=== PATIENT | female | born 1940 | race Caucasian/White ===

== ENCOUNTER 2018-06-21 12:39 | Emergency (ER) | payer MEDICARE, OTHER ==
[~2018-06-21] VITALS: Ht 170.2 cm; Wt 75.9 kg
[2018-06-21] MEDS ORDERED: OMNI-PAC300 MG PO (13:00)
[2018-06-21] MEDS ORDERED: ZYRTEC10 MG PO (13:04)
[2018-06-21] MEDS ORDERED: ADULT ASPIRIN R81 MG PO (13:04)
[2018-06-21] MEDS ORDERED: HYDROXYUREA500 MG PO (13:05)
[2018-06-21] MEDS ORDERED: VITAMIN D PO (13:05)
[2018-06-21] MEDS ORDERED: NEURONTIN100 MG PO (13:05)
[2018-06-21] MEDS ORDERED: BETIMOL0.5 % OU (13:06)
[2018-06-21 13:40] VITALS: BP 155/74
== END 2018-06-21 13:40 | disposition home or self-care (01) ==
LOC: ED 12:39
DX: L03.115 Cellulitis of right lower limb (principal); F17.210 Nicotine dependence, cigarettes, uncomplicated

== ENCOUNTER 2020-07-23 07:41 | Emergency (ER) | payer MEDICARE, OTHER ==
[~2020-07-23] VITALS: Ht 170.2 cm; Wt 80.0 kg
[~2020-07-23 07:41] MED LIST: ADULT ASPIRIN R81 MG PO; BETIMOL0.5 % OU; HYDROXYUREA500 MG PO; NEURONTIN100 MG PO; OMNI-PAC300 MG PO; VITAMIN D PO; ZYRTEC10 MG PO
[2020-07-23 08:45] LABS: HEMATOCRIT 39.2 % (37.0-47.0); IMMATURE GRANULOCYTES 1.1 % (0.0-5.0); MEAN CELL VOLUME 110.1 fL CALC (80.0-100.0); MEAN CORPUSCULAR HGB 36.5 pG CALC (26.0-32.0); MEAN CORPUSCULAR HGB CONC 33.2 g/dL CAL (32.0-36.0); NEUT# 6.59 thou/uL (2.00-7.15); RED BLOOD COUNT 3.56 mill/uL (4.20-5.60); RED CELL DISTRI WIDTH 13.2 % (11.5-15.5)
[2020-07-23 09:03] LABS: ALBUMIN 3.9 g/dL (3.2-5.0); ALKALINE PHOSPHATASE 60 u/l (38-126); ANION GAP 10 (6-22 (CALC)); BILIRUBIN, TOTAL 0.3 mg/dL (0.0-1.4); BUN 17 mg/dL (8-23); BUN/CREATININE RATIO 25 (12-20 (CALC)); CARBON DIOXIDE 30 mmol/l (22-30); CHLORIDE 99 mmol/l (95-108); CREATININE 0.7 mg/dL (0.5-1.0); GFR > 60 ML/MIN (>=60 (CALC)); GFR FOR AFR.AMER. > 60 ML/MIN (>=60 (CALC)); POTASSIUM 4.4 mmol/l (3.5-5.1); SGOT/AST 18 u/l (9-36); SODIUM 134 mmol/l (137-146); TOTAL PROTEIN 6.6 g/dL (6.3-8.2)
[2020-07-23] MEDS ORDERED: NAPROXEN500 MG PO (09:28)
[2020-07-23 09:33] VITALS: BP 121/60
== END 2020-07-23 09:42 | disposition home or self-care (01) ==
LOC: ED 07:41
PROVIDERS: Emergency Medicine
DX: M79.89 Other specified soft tissue disorders (principal); D45 Polycythemia vera; F17.200 Nicotine dependence, unspecified, uncomplicated

== ENCOUNTER 2021-02-23 11:31 | Inpatient (IN) | payer MEDICARE, OTHER ==
[~2021-02-23] VITALS: Ht 170.2 cm; Wt 78.0 kg
[~2021-02-23 11:31] MED LIST changes: +NAPROXEN500 MG PO
--- NOTE | 2021-02-23 11:31 | NUR ---
PT TO ROOM VIA WC
[2021-02-23 12:08] LABS: HEMOGLOBIN 13.6 g/dl (12.0-16.0); IMMATURE GRANULOCYTES 1.2 % (0.0-5.0); MEAN CELL VOLUME 105.7 fL CALC (80.0-100.0); MEAN CORPUSCULAR HGB 36.9 pG CALC (26.0-32.0); MEAN CORPUSCULAR HGB CONC 34.9 g/dL CAL (32.0-36.0); NEUT# 19.42 thou/uL (2.00-7.15); RED BLOOD COUNT 3.69 mill/uL (4.20-5.60); RED CELL DISTRI WIDTH 12.6 % (11.5-15.5)
[2021-02-23 12:19] LABS: ALBUMIN 3.7 g/dL (3.2-5.0); BILIRUBIN, TOTAL 0.6 mg/dL (0.0-1.4); BUN 16 mg/dL (8-23); BUN/CREATININE RATIO 28 (12-20 (CALC)); CARBON DIOXIDE 30 mmol/l (22-30); CREATININE 0.6 mg/dL (0.5-1.0); GFR > 60 ML/MIN (>=60 (CALC)); GFR FOR AFR.AMER. > 60 ML/MIN (>=60 (CALC)); POTASSIUM 4.1 mmol/l (3.5-5.1); TOTAL PROTEIN 7.1 g/dL (6.3-8.2)
[2021-02-23 12:20] LABS: ALKALINE PHOSPHATASE 124 u/l (38-126); ANION GAP 10 (6-22 (CALC)); CHLORIDE 87 mmol/l (95-108); SGOT/AST 33 u/l (9-36); SODIUM 123 mmol/l (137-146)
--- NOTE | 2021-02-23 12:35 | NUR ---
Reassessment of patient completed. No distress noted.
--- NOTE | 2021-02-23 14:59 | NUR ---
Reassessment of patient completed. No distress noted.
[2021-02-23] MEDS ORDERED: LUNESTA1 M1 PO (15:35)
--- NOTE | 2021-02-23 16:45 | NUR ---
CALL TO MED/SURG FOR REPORT
--- NOTE | 2021-02-23 16:50 | NUR ---
REPORT CALLED TO [facility]
--- NOTE | 2021-02-23 16:59 | NUR ---
REPORT GIVEN TO FLOOR
--- NOTE | 2021-02-23 17:13 | NUR ---
PT ARRIVED VIA STRECTHER ACCOMPANIED BY DHRUV BROWN. PT A&O X3. O2 VIA NC @[address] COARSE BREATH SOUNDS UPON AUSCULTATION. HYPOACTIVE BOWEL SOUNDS X4 QUADRANTS; PT REPORTS LAST BM 02/21. BUSINESS INSTRUCTOR COUGH NOTED; PT REPORTS OCCASSIONAL PRODUCTION. ADMITS TO SMOKING 1/2 PPD. EXERTIONAL SOB NOTED. #20G LAC HEALTHY AND PATENT. SLAT BASKET MAKER HELPER MACHINE IN PLACE. ASSESSMENT COMPLETED. DISCUSSED POC. ORIENTED PT TO ROOM. CALL LIGHT WITHIN REACH.
--- NOTE | 2021-02-23 17:14 | NUR ---
PATIENT TRANSPORTED TO [facility]
[2021-02-23 19:00] VITALS: BP 145/82
--- NOTE | 2021-02-23 19:45 | NUR ---
PATIENT ALERT AND ORIENTED. ABLE TO MAKE NEEDS KNOWN. ASSESSMENT COMPLETE. NO SIGNS OF DISTRESS NOTED. NO COMPLAINTS OF PAIN VOICED. PATIENT STATED, '' I HAVENT COUGHED MUCH''. CALL LIGHT AND BELONGINGS REMAIN IN REACH.
--- NOTE | 2021-02-23 23:09 | NUR ---
OBSERVED PATIENT COUGHING MULTIPLE TIMES. ASKED PATIENT IF SHE WOULD LIKE A BREATHING TREATMENT. RESPIRATORY THERAPY CALLED TO GIVE PATIENT BREATHING TREATMENT. NO SIGNS OF DISTRESS. NO COMPLAINTS OF PAIN. PATIENT HAVING HARD TIME SLEEPING BECAUSE HER COUGHING WAKES HER UP. CALL LIGHT AND BELONGINGS REMAIN IN REACH.
[2021-02-24] VITALS: BP 138/73
--- NOTE | 2021-02-24 02:15 | NUR ---
OBSERVED PATIENT WALKING DOWN THE HALLWAY. CELL CHANGER WALKED PATIENT BACK TO ROOM. PATIENT STATED SHE NEEDED TO USE THE BATHROOM. CELL CHANGER ASSISTED PATIENT TO BEDSIDE COMMODE. AFTER PATIENT WAS ASSISTED BACK TO BED, STAFF REMINDED HER TO UTILIZE HER CALL LIGHT FOR HELP BEFORE GETTING UP FOR SAFETY PURPOSES. BED ALARM WAS ACTIVATED FOR SAFETY PURPOSES. CALL LIGHT AND BELONGINGS REMAIN IN REACH.
[2021-02-24 04:00] VITALS: BP 146/78
--- NOTE | 2021-02-24 04:15 | NUR ---
PATIENT RESTING IN BED. NO DISTRESS NOTED. NO COMPLAINTS OF PAIN AT THIS TIME. NO COUGHING OBSERVED SINCE BREATHING TREATMENT WAS GIVEN BY RT. NO FURTHER ATTEMPTS OF GETTING OUT OF PAIN BY SELF AT THIS TIME. CALL LIGHT AND BELONGINGS REMAIN IN REACH.
[2021-02-24 05:49] LABS: HEMATOCRIT 35.8 % (37.0-47.0); HEMOGLOBIN 12.1 g/dl (12.0-16.0); MEAN CELL VOLUME 107.8 fL CALC (80.0-100.0); MEAN CORPUSCULAR HGB 36.4 pG CALC (26.0-32.0); MEAN CORPUSCULAR HGB CONC 33.8 g/dL CAL (32.0-36.0); RED BLOOD COUNT 3.32 mill/uL (4.20-5.60)
[2021-02-24 06:05] LABS: ANION GAP 7 (6-22 (CALC)); BUN 15 mg/dL (8-23); BUN/CREATININE RATIO 26 (12-20 (CALC)); CARBON DIOXIDE 28 mmol/l (22-30); CHLORIDE 95 mmol/l (95-108); CREATININE 0.6 mg/dL (0.5-1.0); GFR > 60 ML/MIN (>=60 (CALC)); GFR FOR AFR.AMER. > 60 ML/MIN (>=60 (CALC)); MAGNESIUM 1.8 mg/dL (1.6-2.3); POTASSIUM 4.4 mmol/l (3.5-5.1); SODIUM 125 mmol/l (137-146)
--- NOTE | 2021-02-24 07:30 | NUR ---
RECIEVED REPORT FROM KEVIN GARCIA
[2021-02-24 08:15] VITALS: BP 168/80
--- NOTE | 2021-02-24 08:15 | NUR ---
PT RESTING IN SEMI FOWLERS POSITION. PT IS A/OX3 WITH PERIODS OF CONFUSION. ASSESSMENT AND VITALS COMPLETED. BP 168/80, HR 79,O2 97% ON 2L NC. RESPIRATIONS ARE SHALLOW. LUNG SOUNDS ARE COURSE. PT RREQUESTING NEB TREATMENT, RT INFORMED. BOWEL SOUNDS ARE ACTIVE, PT REPORTS BM 02/24/20. HEART RHYTHM NORMAL WITH TELE IN PLACE, SR WITH PAC PER ER MONITORING.#20G LAC FLUSHED, SITE APEARS HEALTHY AND PATENT. SKIN INTACT. PT DENIES OF ANY OF ANY PAINS OR DISCOMFORTS AT THIS TIME. ALL SAFTEY PRECAUTIONS ARE IN PLACE WITH CALL LIGHT IN REACH.BED ALARM ACTIVE. WILL CONTINUE TO MONITOR.
--- NOTE | 2021-02-24 10:25 | NUR ---
DR SALOMON AND ART,ANLUX AT BEDSIDE
[2021-02-24 12:12] VITALS: BP 147/84
--- NOTE | 2021-02-24 12:24 | NUR ---
PT UP WALKING AROUND ROOM WITH STEADY GAIT. PT STATES SHES ONLY WALKING AROUND SINCE DAUGHTER IN AT BEDSIDE. REPORTS FROM MANAGER [employer] OF UNSTEADY GAIT. PT RE-EDUCATED ON CALLING FOR ASSISTANCE. PT VERBLAIZED UNDERSTANDING. RESPIRATIONS REMAINS EVEN AND UNLABORED ON 2L NC. #20G LAC INFUSING WITH IVF PER ORDER. TELE MONITORING IN PLACE. PT DENIES OF ANY ADDITIONAL NEEDS AT THIS TIME. ALL SAFTEY PRECAUTIONS ARE IN PLACE WITH CALL LIGHT IN REACH. WILL CONTINUE TO MONITOR
--- NOTE | 2021-02-24 15:39 | NUR ---
PT REMAIS SLEEPING IN SEMI FOWLERS POSITION. RESPIRATIONS REMAINS EVEN AND UNLABORED ON 2L NC. #20G LAC INFUSING WITH IVF PER ORDER, SITE REMAINS HEALTHY AND PATENT. TELE MONITORIG I PLACE. NO SIGN OF PAIN OR DISCOMFORTS. ALL SAFTEY PRECAUTIONS ARE IN PLACE WITH CALL LIGHT IN REACH. WILL CONTINUE TO MONITOR
[2021-02-24 16:42] VITALS: BP 135/74
[2021-02-24 19:30] VITALS: BP 158/77
[2021-02-25 00:09] VITALS: BP 167/78
[2021-02-25 04:40] VITALS: BP 184/79
[2021-02-25 05:12] VITALS: BP 137/60
[2021-02-25 07:25] VITALS: BP 137/64
--- NOTE | 2021-02-25 07:39 | NUR ---
PT note The patient is screened for PT intervention and no needs are identified at this time
--- NOTE | 2021-02-25 08:46 | NUR ---
PT ALERT AND ORIENTED X 3. LUNGS SLIGHTLY COARSE, LOUD COUGH HEARD, 3 LPM NC. PT STATES NO BM FOR SEVERAL DAYS, NOT TOO UNUSUAL FOR HER. PT OOB IN CHAIR AT BEDSIDE FOR BREAKFAST.
[2021-02-25 11:45] VITALS: BP 120/65
--- NOTE | 2021-02-25 12:10 | NUR ---
PT TAKEN FOR 6 MINUTE WALK TEST. STARTED 95% RA, WENT DOWN TO 93% DURING WALK, RECOVERED TO 95% AT REST AGAIN.
[2021-02-25] MEDS ORDERED: PREDNISONE20 MG PO (13:10)
[2021-02-25] MEDS ORDERED: MUCINEX600 MG PO (13:11)
[2021-02-25] MEDS ORDERED: VENTOLIN HFA108 MCG IN (13:12)
[2021-02-25] MEDS ORDERED: OMNICEF300 MG PO (13:13)
[2021-02-25] MEDS ORDERED: ZITHROMAX250 MG PO (13:15)
--- NOTE | 2021-02-25 14:35 | NUR ---
PT VERBALIZES UNDERSTANDING OF DC INSTRUCTIONS, CALLS DAUGHTER FOR PICKUP. PT CONCERNED ABOUT OCCASIONAL EPISODES OF SHORTNESS OF BREATH, ENCOURAGED BY DR SALOMON TO REFRAIN FROM SMOKING.
[2021-02-25 14:41] LABS: HEMATOCRIT 36.8 % (37.0-47.0); HEMOGLOBIN 12.2 g/dl (12.0-16.0); IMMATURE GRANULOCYTES 5.2 % (0.0-5.0); MEAN CELL VOLUME 110.5 fL CALC (80.0-100.0); MEAN CORPUSCULAR HGB 36.6 pG CALC (26.0-32.0); MEAN CORPUSCULAR HGB CONC 33.2 g/dL CAL (32.0-36.0); NEUT# 14.8 thou/uL (2.00-7.15); RED BLOOD COUNT 3.33 mill/uL (4.20-5.60)
[2021-02-25 15:01] LABS: ANION GAP 8 (6-22 (CALC)); BUN 22 mg/dL (8-23); BUN/CREATININE RATIO 30 (12-20 (CALC)); CARBON DIOXIDE 30 mmol/l (22-30); CHLORIDE 100 mmol/l (95-108); CREATININE 0.7 mg/dL (0.5-1.0); GFR > 60 ML/MIN (>=60 (CALC)); GFR FOR AFR.AMER. > 60 ML/MIN (>=60 (CALC)); POTASSIUM 4.9 mmol/l (3.5-5.1)
[2021-02-25 15:06] LABS: SODIUM 133 mmol/l (137-146)
== END 2021-02-25 14:30 | disposition home health service (06) | DRG 193 ==
LOC: ED 11:31 → ED-I 15:27 → ED 15:38 → MS2 15:39
PROVIDERS: Family Medicine; Nurse Practitioner; ADMIT Hospitalist; ATTEND Internal Medicine
DX: J18.9 Pneumonia, unspecified organism (principal); J96.01 Acute respiratory failure with hypoxia; E87.1 Hypo-osmolality and hyponatremia; J44.0 Chronic obstructive pulmonary disease with (acute) lower respiratory infection; I10 Essential (primary) hypertension; D45 Polycythemia vera; H35.30 Unspecified macular degeneration; F17.210 Nicotine dependence, cigarettes, uncomplicated; Z20.822 Contact with and (suspected) exposure to COVID-19
CPT/HCPCS: G0378; J1650; Q9967

== ENCOUNTER 2021-03-19 09:32 | Emergency (ER) | payer MEDICARE, OTHER ==
[~2021-03-19] VITALS: Ht 170.2 cm; Wt 72.7 kg
[~2021-03-19 09:32] MED LIST changes: +LUNESTA1 M1 PO; +MUCINEX600 MG PO; +OMNICEF300 MG PO; +PREDNISONE20 MG PO; +VENTOLIN HFA108 MCG IN; +ZITHROMAX250 MG PO
[2021-03-19 10:17] LABS: HEMATOCRIT 38.7 % (37.0-47.0); HEMOGLOBIN 12.7 g/dl (12.0-16.0); IMMATURE GRANULOCYTES 0.7 % (0.0-5.0); MEAN CELL VOLUME 112.8 fL CALC (80.0-100.0); MEAN CORPUSCULAR HGB CONC 32.8 g/dL CAL (32.0-36.0); NEUT# 7.23 thou/uL (2.00-7.15); RED BLOOD COUNT 3.43 mill/uL (4.20-5.60); RED CELL DISTRI WIDTH 15.7 % (11.5-15.5)
[2021-03-19 10:38] LABS: ALBUMIN 4.2 g/dL (3.2-5.0); ALKALINE PHOSPHATASE 72 u/l (38-126); ANION GAP 10 (6-22 (CALC)); BILIRUBIN, TOTAL 0.6 mg/dL (0.0-1.4); BUN 19 mg/dL (8-23); BUN/CREATININE RATIO 24 (12-20 (CALC)); CARBON DIOXIDE 31 mmol/l (22-30); CHLORIDE 93 mmol/l (95-108); CREATININE 0.8 mg/dL (0.5-1.0); GFR > 60 ML/MIN (>=60 (CALC)); GFR FOR AFR.AMER. > 60 ML/MIN (>=60 (CALC)); LIPASE 54 u/l (23-300); POTASSIUM 4.5 mmol/l (3.5-5.1); SGOT/AST 26 u/l (9-36); SODIUM 129 mmol/l (137-146); TOTAL PROTEIN 7.2 g/dL (6.3-8.2)
[2021-03-19 12:53] VITALS: BP 149/66
== END 2021-03-19 12:53 | disposition home or self-care (01) ==
LOC: ED 09:32
DX: K56.41 Fecal impaction (principal); D45 Polycythemia vera; C94.6 Myelodysplastic disease, not elsewhere classified; F17.200 Nicotine dependence, unspecified, uncomplicated; Z79.899 Other long term (current) drug therapy
CPT/HCPCS: Q9967

== ENCOUNTER 2021-06-02 12:36 | Emergency (ER) | payer MEDICARE, OTHER ==
[~2021-06-02] VITALS: Ht 172.7 cm; Wt 71.8 kg
[2021-06-02 13:10] LABS: HEMOGLOBIN 12.8 g/dl (12.0-16.0); IMMATURE GRANULOCYTES 1.1 % (0.0-5.0); MEAN CELL VOLUME 110.1 fL CALC (80.0-100.0); MEAN CORPUSCULAR HGB 37.1 pG CALC (26.0-32.0); MEAN CORPUSCULAR HGB CONC 33.7 g/dL CAL (32.0-36.0); NEUT# 4.59 thou/uL (2.00-7.15); RED BLOOD COUNT 3.45 mill/uL (4.20-5.60); RED CELL DISTRI WIDTH 13.8 % (11.5-15.5)
[2021-06-02 13:32] LABS: ALKALINE PHOSPHATASE 75 u/l (38-126); ANION GAP 12 (6-22 (CALC)); BILIRUBIN, TOTAL 0.5 mg/dL (0.0-1.4); BUN 14 mg/dL (8-23); BUN/CREATININE RATIO 23 (12-20 (CALC)); CARBON DIOXIDE 27 mmol/l (22-30); CHLORIDE 102 mmol/l (95-108); CREATININE 0.6 mg/dL (0.5-1.0); GFR > 60 ML/MIN (>=60 (CALC)); GFR FOR AFR.AMER. > 60 ML/MIN (>=60 (CALC)); POTASSIUM 4.2 mmol/l (3.5-5.1); SGOT/AST 20 u/l (9-36); SODIUM 137 mmol/l (137-146); TOTAL PROTEIN 7.2 g/dL (6.3-8.2)
[2021-06-02] MEDS ORDERED: VISTARIL 50MG C50 M1 PO (14:01)
[2021-06-02 14:05] VITALS: BP 173/74
== END 2021-06-02 14:20 | disposition home or self-care (01) ==
LOC: ED 12:36
PROVIDERS: Family Medicine
DX: R06.02 Shortness of breath (principal); F41.9 Anxiety disorder, unspecified; I10 Essential (primary) hypertension; D45 Polycythemia vera; C94.6 Myelodysplastic disease, not elsewhere classified; F17.200 Nicotine dependence, unspecified, uncomplicated

== ENCOUNTER 2021-06-10 17:22 | Emergency (ER) | payer MEDICARE, OTHER ==
[~2021-06-10] VITALS: Ht 172.7 cm; Wt 69.1 kg
[~2021-06-10 17:22] MED LIST changes: +VISTARIL 50MG C50 M1 PO
[2021-06-10 17:30] VITALS: BP 150/73
[2021-06-10 18:21] VITALS: BP 153/71
[2021-06-10 18:28] LABS: HEMATOCRIT 33.9 % (37.0-47.0); HEMOGLOBIN 11.4 g/dl (12.0-16.0); IMMATURE GRANULOCYTES 1.4 % (0.0-5.0); MEAN CELL VOLUME 108.7 fL CALC (80.0-100.0); MEAN CORPUSCULAR HGB 36.5 pG CALC (26.0-32.0); MEAN CORPUSCULAR HGB CONC 33.6 g/dL CAL (32.0-36.0); NEUT# 3.96 thou/uL (2.00-7.15); RED BLOOD COUNT 3.12 mill/uL (4.20-5.60); RED CELL DISTRI WIDTH 13.2 % (11.5-15.5)
[2021-06-10] MEDS ORDERED: BUPROPION150 M3 PO (18:28)
[2021-06-10 18:30] VITALS: BP 136/58
[2021-06-10 18:45] LABS: ALBUMIN 3.7 g/dL (3.2-5.0); ALKALINE PHOSPHATASE 77 u/l (38-126); ANION GAP 10 (6-22 (CALC)); BILIRUBIN, TOTAL 0.4 mg/dL (0.0-1.4); BUN 16 mg/dL (8-23); BUN/CREATININE RATIO 25 (12-20 (CALC)); CARBON DIOXIDE 28 mmol/l (22-30); CHLORIDE 103 mmol/l (95-108); CREATININE 0.6 mg/dL (0.5-1.0); GFR > 60 ML/MIN (>=60 (CALC)); GFR FOR AFR.AMER. > 60 ML/MIN (>=60 (CALC)); POTASSIUM 3.9 mmol/l (3.5-5.1); SGOT/AST 17 u/l (9-36); SODIUM 136 mmol/l (137-146); TOTAL PROTEIN 6.6 g/dL (6.3-8.2)
[2021-06-10 19:01] VITALS: BP 162/59
[2021-06-10 19:15] VITALS: BP 162/59
[2021-06-13] MEDS ORDERED: PRESERVISION AREDS 2 (11:26)
[2021-06-13] MEDS ORDERED: D3 PO (11:50)
[2021-06-13] MEDS ORDERED: VENTOLIN HFA IN (11:52)
== END 2021-06-10 19:31 | disposition left against medical advice (07) ==
LOC: ED 17:22
PROVIDERS: Family Medicine
DX: R07.9 Chest pain, unspecified (principal); D45 Polycythemia vera; C94.6 Myelodysplastic disease, not elsewhere classified; F17.200 Nicotine dependence, unspecified, uncomplicated; Z91.19 Patient's noncompliance with other medical treatment and regimen; R06.02 Shortness of breath

== ENCOUNTER 2021-06-16 06:50 | Observation (INO) | payer MEDICARE, OTHER ==
[~2021-06-16] VITALS: Ht 172.7 cm; Wt 71.3 kg
[2021-06-16] VITALS (15 sets, daily range): BP systolic 115–143; BP diastolic 48–66
[~2021-06-16 06:50] MED LIST changes: +BUPROPION150 M3 PO; +PRESERVISION AREDS 2 PO; +VENTOLIN HFA IN; +VITAMIN D1.25 MG PO
[2021-06-16 10:58] LABS: HEMATOCRIT 23.7 % (37.0-47.0)
[2021-06-16 11:44] LABS: HEMATOCRIT 23.5 % (37.0-47.0); MEAN CELL VOLUME 107.3 fL CALC (80.0-100.0); MEAN CORPUSCULAR HGB 36.5 pG CALC (26.0-32.0); RED BLOOD COUNT 2.19 mill/uL (4.20-5.60); RED CELL DISTRI WIDTH 13.2 % (11.5-15.5)
[2021-06-16 12:12] LABS: IMMATURE GRANULOCYTES 6.3 % (0.0-5.0); NEUT# 1.28 thou/uL (2.00-7.15)
[2021-06-16 13:10] LABS: HEMATOCRIT 23.8 % (37.0-47.0); HEMOGLOBIN 8.1 g/dl (12.0-16.0); IMMATURE GRANULOCYTES 6.1 % (0.0-5.0); MEAN CELL VOLUME 107.2 fL CALC (80.0-100.0); MEAN CORPUSCULAR HGB 36.5 pG CALC (26.0-32.0); NEUT# 1.31 thou/uL (2.00-7.15); RED BLOOD COUNT 2.22 mill/uL (4.20-5.60); RED CELL DISTRI WIDTH 13.2 % (11.5-15.5)
[2021-06-16 14:14] LABS: HEMOGLOBIN 8.2 g/dl (12.0-16.0); MEAN CELL VOLUME 107.6 fL CALC (80.0-100.0); MEAN CORPUSCULAR HGB 36.8 pG CALC (26.0-32.0); MEAN CORPUSCULAR HGB CONC 34.2 g/dL CAL (32.0-36.0); RED BLOOD COUNT 2.23 mill/uL (4.20-5.60); RED CELL DISTRI WIDTH 13.4 % (11.5-15.5)
[2021-06-16 14:19] LABS: IMMATURE GRANULOCYTES 4.5 % (0.0-5.0); NEUT# 1.55 thou/uL (2.00-7.15)
[2021-06-16 14:51] LABS: ALKALINE PHOSPHATASE 66 u/l (38-126); ANION GAP 8 (6-22 (CALC)); BILIRUBIN, TOTAL 0.5 mg/dL (0.0-1.4); BUN 19 mg/dL (8-23); BUN/CREATININE RATIO 28 (12-20 (CALC)); CARBON DIOXIDE 27 mmol/l (22-30); CHLORIDE 105 mmol/l (95-108); CREATININE 0.7 mg/dL (0.5-1.0); GFR > 60 ML/MIN (>=60 (CALC)); GFR FOR AFR.AMER. > 60 ML/MIN (>=60 (CALC)); POTASSIUM 3.9 mmol/l (3.5-5.1); SGOT/AST 15 u/l (9-36); SODIUM 135 mmol/l (137-146); TOTAL PROTEIN 5.3 g/dL (6.3-8.2)
[2021-06-16 14:52] LABS: ALBUMIN 2.8 g/dL (3.2-5.0)
[2021-06-16 18:41] LABS: HEMATOCRIT 24.7 % (37.0-47.0); HEMOGLOBIN 8.5 g/dl (12.0-16.0)
--- NOTE | 2021-06-16 20:00 | NUR ---
PATIENT ALERT AND ORIENTED. ABLE TO MAKE NEEDS KNOWN. ASSESSMENT COMPLETE. NO SIGNS OF DISTRESS NOTED. NO COMPLAINTS OF PAIN VOICED AT THIS TIME. IV APPEARS TO SET OFF PUMP ALARM OFTEN DUE TO PATIENT BENDING ARM ALOT. FREQUENTLY REMINDING PATIENT TO TRY AND KEEP ARM STRAIGHT IN ORDER FOR THE PUMP NOT TO BEEP. PATIENT REMINDED TO ASK FOR ASSISTANCE BEFORE TRYING TO AMBULATE BY HERSELF FOR SAFETY PURPOSES. PATIENT VERBALIZED UNDERSTANDING. CALL LIGHT AND BELONGINGS REMAIN IN REACH.
[2021-06-16 23:24] LABS: HEMATOCRIT 21.5 % (37.0-47.0); HEMOGLOBIN 7.4 g/dl (12.0-16.0)
--- NOTE | 2021-06-16 23:48 | NUR ---
CALLED AND INFORMED DR. CHURCH PER HIS REQUEST ON PATIENTS MOST RECENT H AND H. NO NEW ORDERS RECEIVED AT THIS TIME. WILL CALL AND INFORM THE PROMOTION WRITER MD FOR MEDICAL MANAGEMENT.
--- NOTE | 2021-06-16 23:50 | NUR ---
CALLED AND INFORMED CANARY RAISER PROVIDER COVERING PATIENTS MEDICAL MANAGEMENT ASPECT OF PATIENTS UPDATED H AND H. NEW ORDERS RECEIVED. SEE EMAR.
[2021-06-17] VITALS (7 sets, daily range): BP systolic 127–167; BP diastolic 43–80
--- NOTE | 2021-06-17 02:00 | NUR ---
EXPLAINED TO PATIENT HEMOGLOBIN WAS LOW AGAIN AND DR ORDERED ANOTHER BLOOD TRANSFUSION. PATIENT UNDERSTOOD THE NEED FOR MORE BLOOD TO BE HUNG AND SIGNED CONSENT. OTHER STAFF NURSE PRESENT WITH ME.
--- NOTE | 2021-06-17 02:35 | NUR ---
CALLED HONING JOB SETTER PROVIDER AND INFORMED HIM OF PATIENTS STATUS. AT 0220 PATIENT PULLED OUT BOTH IVS, APPEARED VERY CONFUSED AND PARANOID ACCORDING TO NURSING DUTY OFFICER WHO WAS PRESENT. PATIENT WAS ACCUSING STAFF OF BEING TERRORISTS AND DID NOT WANT TO BE STUCK WITH A NEEDLE FOR A NEW IV START. PATIENT STATED, ''YOURE USING MY BODY TO PURIFY BLOOD''. NEW ORDER RECEIVED BY PROVIDER. SEE EMAR. PROVIDER ALSO APPROVED TO HOLD IV, BLOOD, AND TELE UNTIL MORNING IF PATIENT WILL SLEEP.
--- NOTE | 2021-06-17 02:40 | NUR ---
PATIENT IN ROOM CALLING RELATIVES INCLUDING DAUGHTER AND WITH KELP OR SEAGRASS GATHERER PRESENT. PATIENT ALSO CALLED 911 TO REPORT TERRORISTS. DISPATCH CALLED TO VERIFY CALL. DEPUTIES IN ROUTE.
--- NOTE | 2021-06-17 02:45 | NUR ---
POLICE OFFICERS X2 ARRIVED WITH HOSPITAL SECURITY TO PATIENT ROOM. PATIENT STILL REMAINS CONFUSED. ''THIS IS NOT [facility]''. ''NAME THE TOOLING INSPECTOR''. PATIENT DID CALM DOWN. PATIENT CELL PHONE CONFISCATED BY POLICE AND PUT AT NURSING STATION SO PATIENT COULD NOT KEEP CALLING 911 TO REPORT TERRORISTS.
--- NOTE | 2021-06-17 02:58 | NUR ---
ARRIVED TO [facility] TO PATIENT ROOM TO BE WITH . NURSING CREDIT RISK MANAGER PRESENT.
--- NOTE | 2021-06-17 03:15 | NUR ---
PT REMAINED AGITATED, REFUSING TO LAY DOWN AND REST. AT BEDSIDE TRYING TO TALK PT DOWN. CONSENTED TO GIVING PT SHOT. ZYPREXIA GIVEN.
--- NOTE | 2021-06-17 03:35 | NUR ---
PATIENT REQUESTED ICE WATER. PROVIDED ICE WATER AND EXTRA PILLOW CASES THAT HE REQUESTED.
--- NOTE | 2021-06-17 04:26 | NUR ---
SPOKE WITH NURSING ASSISTANT MECHANIC. VS AND MORNING LABS DEFERRED DUE TO PATIENTS PRIOR CONFUSION AND AGITATION. WILL INFORM ONCOMING NURSE WHEN SHE ARRIVES. NURSING ASSISTANT MECHANIC REPORTED OBSERVING VERY SCANT AMOUNT OF BLOOD IN TOILET WHEN PATIENT VOIDED.
--- NOTE | 2021-06-17 05:00 | NUR ---
WENT IN ROOM TO CHECK ON PATIENT. PATIENT LAYING ON HER RIGHT SIDE. ALERT. PATIENT APOLOGIZED MORE THEN ONCE ON HER BEHAVIOR FROM EARLIER IN THE SHIFT. PATIENT ALSO VOICED WANTING TO [id number] TO THE OTHER NURSES IF SHE SEES THEM. PATIENT AGREED TO LET LAB DRAW HER BLOOD.
[2021-06-17 05:38] LABS: MEAN CORPUSCULAR HGB 36.1 pG CALC (26.0-32.0); MEAN CORPUSCULAR HGB CONC 34.8 g/dL CAL (32.0-36.0); NEUT# 1.38 thou/uL (2.00-7.15); RED BLOOD COUNT 2.02 mill/uL (4.20-5.60); RED CELL DISTRI WIDTH 14.4 % (11.5-15.5)
[2021-06-17 05:49] LABS: HEMOGLOBIN 7.4 g/dl (12.0-16.0)
[2021-06-17 06:03] LABS: ALBUMIN 2.8 g/dL (3.2-5.0); ALKALINE PHOSPHATASE 65 u/l (38-126); BILIRUBIN, TOTAL 0.6 mg/dL (0.0-1.4); BUN 22 mg/dL (8-23); BUN/CREATININE RATIO 28 (12-20 (CALC)); CARBON DIOXIDE 28 mmol/l (22-30); CHLORIDE 105 mmol/l (95-108); CREATININE 0.8 mg/dL (0.5-1.0); GFR > 60 ML/MIN (>=60 (CALC)); GFR FOR AFR.AMER. > 60 ML/MIN (>=60 (CALC)); MAGNESIUM 1.7 mg/dL (1.6-2.3); POTASSIUM 3.5 mmol/l (3.5-5.1); SGOT/AST 17 u/l (9-36); TOTAL PROTEIN 5.1 g/dL (6.3-8.2)
[2021-06-17 06:05] LABS: ANION GAP 7 (6-22 (CALC)); SODIUM 136 mmol/l (137-146)
--- NOTE | 2021-06-17 07:36 | NUR ---
RECEIVED REPORT FROM PLANS EXAMINER NURSE. PATIENT IS AWAKE AND RESTING IN BED. AOX3. ASSESSEMENT COMPLETED. LS CLEAR BILATERALLY. SINUS RHYTHM HR OF 91WITH TELE IN PLACE. BOWEL SOUNDS ACTIVE. RESPIRATIONS UNLABORED AND EVEN. 20G IV IN RFA WITH BLOOD TRANSFUSING @100ML/HR. CALL LIGHT WITHIN REACH.
--- NOTE | 2021-06-17 10:46 | NUR ---
AM MEDICATIONS HELD UNTIL AFTER BLOOD WAS FINISHED INFUSING PER LOCOMOTIVE ENGINEER ELECTRIC REQUEST
--- NOTE | 2021-06-17 12:03 | NUR ---
PATIENT SITTING UP IN CHAIR WITH IN THE ROOM. C/O FEELING BLOATED. PATIENT ATE 100% OF HER LUNCH. VS STABLE AT THIS TIME. CALL LIGHT WITHIN REACH. PATIENT ADVISED TO CALL IF SHE NEEDS ANYTHING. SHE VERBALIZED UNDERSTANDING
[2021-06-17 12:44] LABS: HEMATOCRIT 24.6 % (37.0-47.0); HEMOGLOBIN 8.6 g/dl (12.0-16.0)
--- NOTE | 2021-06-17 13:52 | NUR ---
PHYSICAL THERAPY AT BEDSIDE. STATES PATIENT IS SAFE TO GO HOME. WILL NOTIFY DR. SALOMON
--- NOTE | 2021-06-17 15:18 | NUR ---
Discharge instructions given. Patient verbalizes understanding of same. Discharged in stable condition via Wheelchair to Home with spouse. All belongings sent with pt.
== END 2021-06-17 15:11 | disposition home or self-care (01) ==
LOC: ENDO 06:50 → ORM 09:30 → MS2 13:37
PROVIDERS: Nurse Practitioner; ADMIT Hospitalist; ATTEND Surgery
PROC: 0DBL8ZX Excision of Transverse Colon, Via Natural or Artificial Opening Endoscopic, Diagnostic (ICD-10-PCS; principal; 2021-06-16)
PROC: 0DBH8ZX Excision of Cecum, Via Natural or Artificial Opening Endoscopic, Diagnostic (ICD-10-PCS; 2021-06-16)
PROC: 30243R1 Transfusion of Nonautologous Platelets into Central Vein, Percutaneous Approach (ICD-10-PCS; 2021-06-16)
PROC: 30243N1 Transfusion of Nonautologous Red Blood Cells into Central Vein, Percutaneous Approach (ICD-10-PCS; 2021-06-16)
PROC: 30233N1 Transfusion of Nonautologous Red Blood Cells into Peripheral Vein, Percutaneous Approach (ICD-10-PCS; 2021-06-17)
DX: K59.00 Constipation, unspecified (principal); D12.0 Benign neoplasm of cecum; D12.3 Benign neoplasm of transverse colon; D78.12 Accidental puncture and laceration of the spleen during other procedure; D62 Acute posthemorrhagic anemia; I95.9 Hypotension, unspecified; D69.6 Thrombocytopenia, unspecified; G62.9 Polyneuropathy, unspecified; D45 Polycythemia vera; F17.210 Nicotine dependence, cigarettes, uncomplicated; K64.8 Other hemorrhoids; H35.30 Unspecified macular degeneration; C94.6 Myelodysplastic disease, not elsewhere classified; F41.9 Anxiety disorder, unspecified; Y83.8 Other surgical procedures as the cause of abnormal reaction of the patient, or of later complication, without mention of misadventure at the time of the procedure; Z92.21 Personal history of antineoplastic chemotherapy
CPT/HCPCS: P9016; P9034; S0166

== ENCOUNTER 2021-06-21 16:40 | Emergency (ER) | payer MEDICARE, OTHER ==
[2021-06-21] VITALS (16 sets, daily range): BP systolic 127–175; BP diastolic 49–108
[~2021-06-21] VITALS: Ht 172.7 cm; Wt 80.0 kg
[2021-06-21 18:38] LABS: HEMATOCRIT 20.8 % (37.0-47.0); HEMOGLOBIN 6.8 g/dl (12.0-16.0); IMMATURE GRANULOCYTES 5.7 % (0.0-5.0); MEAN CELL VOLUME 105.1 fL CALC (80.0-100.0); MEAN CORPUSCULAR HGB 34.3 pG CALC (26.0-32.0); MEAN CORPUSCULAR HGB CONC 32.7 g/dL CAL (32.0-36.0); NEUT# 0.8 thou/uL (2.00-7.15); RED BLOOD COUNT 1.98 mill/uL (4.20-5.60); RED CELL DISTRI WIDTH 14.3 % (11.5-15.5)
[2021-06-21 19:01] LABS: ACT PARTIAL THROMBO TIME 24.1 SECONDS (20.0-32.5); PROTHROMBIN TIME 10.4 SECONDS (9.0-12.5)
[2021-06-21 19:03] LABS: ALBUMIN 3.2 g/dL (3.2-5.0); ALKALINE PHOSPHATASE 81 u/l (38-126); AMYLASE 78 u/l (30-110); BUN 30 mg/dL (8-23); BUN/CREATININE RATIO 33 (12-20 (CALC)); CARBON DIOXIDE 25 mmol/l (22-30); CHLORIDE 107 mmol/l (95-108); CREATININE 0.9 mg/dL (0.5-1.0); GFR > 60 ML/MIN (>=60 (CALC)); GFR FOR AFR.AMER. > 60 ML/MIN (>=60 (CALC)); LIPASE 101 u/l (23-300); SODIUM 135 mmol/l (137-146); TOTAL PROTEIN 5.9 g/dL (6.3-8.2)
[2021-06-21 19:10] LABS: ANION GAP 8 (6-22 (CALC)); POTASSIUM 4.5 mmol/l (3.5-5.1); SGOT/AST 32 u/l (9-36)
== END 2021-06-21 23:01 ==
LOC: ED 16:40
PROC: 30233N1 Transfusion of Nonautologous Red Blood Cells into Peripheral Vein, Percutaneous Approach (ICD-10-PCS; principal; 2021-06-21)
PROC: 30233N1 Transfusion of Nonautologous Red Blood Cells into Peripheral Vein, Percutaneous Approach (ICD-10-PCS; 2021-06-21)
DX: D61.818 Other pancytopenia (principal); D45 Polycythemia vera; C94.6 Myelodysplastic disease, not elsewhere classified; F17.200 Nicotine dependence, unspecified, uncomplicated; Z92.21 Personal history of antineoplastic chemotherapy; Z86.010 Personal history of colon polyps
CPT/HCPCS: P9016; Q9967